=== PATIENT | female | born 1955 | race Caucasian/White ===

== ENCOUNTER 2016-12-03 11:59 | Emergency (ER) | payer OTHER ==
[2016-12-03 11:59] VITALS: BMI 32.7
[2016-12-03 12:10] VITALS: O2SAT 99
--- NOTE | 2016-12-03 13:22 | C.PDOC ---
History Of Present Illness 61 year old female presents to the ED after being sent by Dr. Boyle for a procedure. Patient states she has had intermittent RUQ pain for the past month and was told she had kidney stones. She notes she ate 30 minutes [employer] and denies vomiting, fever, diarrhea, urinary symptoms, or any other complaints at this time. Time Seen by Provider: 12/03/16 12:22 Chief Complaint (Nursing): Female Genitourinary History Per: Patient History/Exam Limitations: no limitations Onset/Duration Of Symptoms: Days Current Symptoms Are (Timing): Still Present Severity: Mild Location Of Pain/Discomfort: RUQ Radiation Of Pain To:: None Associated Symptoms: denies: Fever, Nausea, Vomiting, Urinary Symptoms Abnormal Vaginal Bleeding: No Past Medical History Reviewed: Historical Data, Nursing Documentation, Vital Signs Vital Signs: Last Vital Signs Temp 97.8 F 12/03/16 15:35 Pulse 56 L 12/03/16 15:35 Resp 18 12/03/16 15:35 BP 130/79 12/03/16 15:35 Pulse Ox 99 12/03/16 15:35 - Medical History PMH: Arthritis, HTN Family History: States: Unknown Family Hx - Social History Hx Alcohol Use: No Hx Substance Use: No - Immunization History Hx Tetanus Toxoid Vaccination: No Hx Influenza Vaccination: No Hx Pneumococcal Vaccination: No Review Of Systems Except As Marked, All Systems Reviewed And Found Negative. Constitutional: Negative for: Fever Cardiovascular: Negative for: Chest Pain Respiratory: Negative for: Shortness of Breath Gastrointestinal: Positive for: Abdominal Pain (+RUQ pain). Negative for: Vomiting, Diarrhea Genitourinary: Negative for: Dysuria, Frequency Musculoskeletal: Negative for: Back Pain Physical Exam - Physical Exam Appears: Non-toxic, No Acute Distress Skin: Normal Color, Warm, Dry Head: Atraumatic, Normacephalic Eye(s): bilateral: Normal Inspection Oral Mucosa: Moist Chest: Symmetrical Cardiovascular: Rhythm Regular Respiratory: Normal Breath Sounds, No Accessory Muscle Use Gastrointestinal/Abdominal: Soft, No Tenderness, No Distention, No Guarding, No Rebound Extremity: Normal ROM, No Deformity Neurological/Psych: Oriented x3, Normal Speech, Normal Cognition ED Course And Treatment - Laboratory Results Result Diagrams: 12/03/16 13:34 12/03/16 13:34 O2 Sat by Pulse Oximetry: 99 (Room air) Pulse Ox Interpretation: Normal Medical Decision Making Medical Decision Making: Plan: * Blood work * Urinalysis Progress: Case discussed with Dr. Boyle who requested admission for nephrolithiasis. Disposition - Disposition Disposition: HOSPITALIZED Disposition Time: 13:00 Condition: STABLE - Clinical Impression Clinical Impression: Nephrolithiasis - PA / EXECUTIVE DIRECTOR OF NURSING / Resident Statement MD/DO has reviewed & agrees with the documentation as recorded. - Scribe Statement The provider has reviewed the documentation as recorded by the Scribe Vandana Goel. All medical record entries made by the Scribe were at my direction and personally dictated by me. I have reviewed the chart and agree that the record accurately reflects my personal performance of the history, physical exam, medical decision making, and the department course for this patient. I have also personally directed, reviewed, and agree with the discharge instructions and disposition. Decision To Admit - . Bed Request Type: Same Day Surgery Admitting Physician: Perico Boyle Patient Diagnosis: Nephrolithiasis
[2016-12-03 13:37] LABS: URINE BACTERIA RARE (<OCC); URINE BILIRUBIN NEGATIVE (NEGATIVE); URINE BLOOD NEGATIVE (NEGATIVE); URINE COLOR Straw (YELLOW); URINE GLUCOSE (UA) NORMAL (Normal); URINE KETONE NEGATIVE (NEGATIVE); URINE LEUKOCYTE ESTERASE NEG Leu/uL (Negative); URINE PROTEIN NEGATIVE (NEGATIVE); URINE UROBILINOGEN NORMAL mg/dL (0.2-1.0)
[2016-12-03 13:45] LABS: BASO # 0.1 K/uL (0.0-0.2); BASO % 0.9 % (0.0-2.0); EOS # 0.1 K/uL (0.0-0.7); EOS % 2.1 % (0.0-4.0); HEMATOCRIT 37.4 % (34.0-47.0); LYMPH # 1.9 K/uL (1.0-4.3); LYMPH % 30.9 % (20.0-40.0); MEAN CELL VOLUME 82.6 fL (81.0-99.0); MEAN CORPUSCULAR HGB CONC 33.9 g/dL (33.0-37.0); MEAN PLATELET VOLUME 8.8 fL (7.2-11.7); MONO # 0.4 K/uL (0.0-0.8); MONO % 7.4 % (0.0-10.0); NRBC % 0.1 % (0.0-2.0); RED CELL DISTRIBUTION WIDTH 13.5 % (11.5-14.5)
[2016-12-03 13:47] LABS: CHLORIDE 101 mmol/L (98-107)
[2016-12-03 13:48] LABS: POTASSIUM 3.6 mmol/L (3.6-5.2); SODIUM 141 mmol/L (132-148)
[2016-12-03 13:50] LABS: ALB/GLOB RATIO 1.3 (1.0-2.1); AST/SGOT 37 U/L (14-36); BILIRUBIN,TOTAL 0.2 mg/dL (0.2-1.3); CARBON DIOXIDE 27 mmol/L (22-30); GFR AFRICAN-AMERICAN > 60; TOTAL PROTEIN 7.1 g/dL (6.3-8.3)
[2016-12-03 13:51] LABS: ALKALINE PHOSPHATASE 79 U/L (38-126); ALT/SGPT 38 U/L (9-52); BLOOD UREA NITROGEN 14 mg/dL (7-17); CALCIUM 8.9 mg/dl (8.6-10.4); GLUCOSE,RANDOM 127 mg/dL (65-105)
[2016-12-03 15:37] VITALS: BP 130/79; PULSE 56; RESP 18; TEMP 97.8
--- NOTE | 2016-12-03 17:36 | HP ---
UROLOGY EMERGENCY ADMISSION AND EMERGENCY DISCHARGE HISTORY OF PRESENT ILLNESS: The patient is known to me. She has kidney stone. Comes in today with emergency pain. I had been seeing the patient in the office. We had discussed options. Trying to sc hedule an outpatient, but she is having too much pain for waiting, so she came to the ER. See plans below. We discussed the possibility for a cysto, stent insertion. PAST MEDICAL AND SURGICAL HISTORY: As listed on the chart. Otherwise, unremarkable from a urology [facility]. No history of an VT or CVA. SOCIAL HISTORY: She is here with her and her grandchildren. Yesterday, the was in the office, also, as a patient. See those documented notes. He had re ceived a medication called TriMix. He is actually very happy with it. We had discussed various options with the patient for recommendations. MEDICATIONS: See chart. ALLERGIES: . PHYSICAL EXAMINATION: GENERAL: Well-nourished female. She is currently resting comfortably on the gurney, in no apparent distress. VITAL SIGNS: Within normal limits, included in the chart. LUNGS: Clear. HEART: Normal S1. ABDOMEN: Overall soft, nontender. PELVIC: Deferred for now. DIAGNOSIS: Severe renal colic that now she is resting comfortably and feeling better. We discussed options with the patient. At this point, the patient has had a large meal. I discussed with her specifically not eating anything after 7, but with the highway safety engineer today she is e xplaining that she just forgot. She had pancakes, eggs, milk; all kinds of things. Late in the morning. I discussed with the patient therefore options about waiting for later. Then, she started asking mor e questions about the risks associated with the procedure, particularly in the evening. We tried the n considering the possibility for taking care of her in the morning. The operating room schedule is not yet available. At this point, she is stable. She has her here with her, so I discussed with her options. W e are going to make arrangements for an outpatient, and if it is an emergency will even do it tomorro w. I had discussed previously with the patient the possibility for going out to [place] [facility], but for various reasons we were not able to do that. So, the plan at this point is to discharge the patient home today overnight, after she has taken ibuprofen. I asked her if she wants anything stronger, like Percocet or Tylenol with codeine. She said no. PLAN: Is as follows: Observation. If she has any fevers, I explained to her just to call me. Naus ea, vomiting, etc., she has to call me. She is, meanwhile, to strain the urine and then further plan s will follow. She is going to come to the office and we are going to discuss further. On a separate social note, I also spoke to the who speaks Slovak a little bit better. He wa s very happy with the medication I gave him yesterday and the name was TriMix. Was able to use the medicine and he said that he would rather just not do the procedure at this point until his is much more clear as to what she is getting done. I had explained it several times yesterday, explained it by phone now, and I explained it again with the highway safety engineer here. But, if there are any concerns I certainly do not want to be pushing the procedure. PLAN FOLLOWS: Analgesics, hydration, discharged home, and then follow up. Vimal Boyle MD cc: [id number] TT: 12/03/2016 17:35:47 donta
== END 2016-12-03 16:25 | disposition home or self-care (01) ==
LOC: C.ER 11:59 → C.SDS 14:25 → C.ER 14:25
DX: N20.0 Calculus of kidney (principal)

== ENCOUNTER 2016-12-07 11:50 | Day surgery (SDC) | payer OTHER ==
[2016-12-07 11:51] VITALS: BMI 32.7
--- NOTE | 2016-12-07 12:10 | C.PDOC ---
History Of Present Illness The patient, a 61 y/o female, presents to the ED for evaluation after being referred by Dr. Boyle for an unknown procedure. Patient reports right-sided flank and right upper quadrant pain which began around 2 months ago. Otherwise, she denies fever, chills, nausea, vomiting, and diarrhea. Chief Complaint (Nursing): Abdominal Pain History Per: Patient History/Exam Limitations: no limitations Onset/Duration Of Symptoms: Other (+2 months ) Current Symptoms Are (Timing): Still Present Location Of Pain/Discomfort: RUQ Radiation Of Pain To:: Other (right-sided flank ) Quality Of Discomfort: "Pain" Associated Symptoms: denies: Fever, Chills, Nausea, Vomiting, Diarrhea, Constipation Exacerbating Factors: None Alleviating Factors: None Additional History Per: Patient Abnormal Vaginal Bleeding: No Past Medical History Reviewed: Historical Data, Nursing Documentation, Vital Signs Vital Signs: Last Vital Signs Temp 97.8 F 12/07/16 15:03 Pulse 65 12/07/16 15:03 Resp 20 12/07/16 15:03 BP 124/74 12/07/16 15:03 Pulse Ox 100 12/07/16 15:03 - Medical History PMH: Arthritis, HTN Denies: Chronic Kidney Disease Surgical History: No Surg Hx Family History: States: Unknown Family Hx - Social History Hx Alcohol Use: No Hx Substance Use: No - Immunization History Hx Tetanus Toxoid Vaccination: No Hx Influenza Vaccination: No Hx Pneumococcal Vaccination: No Review Of Systems Except As Marked, All Systems Reviewed And Found Negative. Constitutional: Negative for: Fever, Chills Gastrointestinal: Positive for: Abdominal Pain (right upper quadrant ). Negative for: Nausea, Vomiting, Diarrhea Musculoskeletal: Positive for: Other (+right-sided flank pain ) Physical Exam - Physical Exam Appears: Non-toxic, No Acute Distress Skin: Normal Color, Warm, Dry Head: Atraumatic, Normacephalic Eye(s): bilateral: Normal Inspection Oral Mucosa: Moist Neck: Supple Chest: Symmetrical, No Deformity, No Tenderness Cardiovascular: Rhythm Regular, No Murmur Respiratory: Normal Breath Sounds, No Rales, No Rhonchi, No Wheezing Gastrointestinal/Abdominal: Soft, No Tenderness, No Guarding, No Rebound Back: Normal Inspection, No Vertebral Tenderness, No Paraspinal Tenderness Extremity: Normal ROM, Capillary Refill (less than 2 seconds ) Neurological/Psych: Oriented x3, Normal Speech, Normal Cognition Gait: Steady ED Course And Treatment - Laboratory Results Result Diagrams: 12/07/16 13:20 12/07/16 13:20 O2 Sat by Pulse Oximetry: 99 (on RA) Pulse Ox Interpretation: Normal Medical Decision Making Medical Decision Making: Impression: 61y/o female with right-sided flank and right upper quadrant pain Plan: * labs * reassess and disposition Progress Notes: labs ordered and reviewed. 1350: Received callback from Dr. Boyle, who states patient was referred to the [facility] for Same Day Surgery. Disposition - Disposition Disposition: HOSPITALIZED Disposition Time: 13:50 Condition: STABLE - POA Present On Arrival: None - Clinical Impression Clinical Impression: Nephrolithiasis - PA / LABORATORY MILLER / Resident Statement MD/DO has reviewed & agrees with the documentation as recorded. - Scribe Statement The provider has reviewed the documentation as recorded by the Scribe (Celina Montgomery) All medical record entries made by the Scribe were at my direction and personally dictated by me. I have reviewed the chart and agree that the record accurately reflects my personal performance of the history, physical exam, medical decision making, and the department course for this patient. I have also personally directed, reviewed, and agree with the discharge instructions and disposition. Decision To Admit - Pt Status Changed To: Hospital Disposition Of: SDS- Endo,OR,Cath,IR - . Bed Request Type: Same Day Surgery Admitting Physician: Perico Boyle Patient Diagnosis: Nephrolithiasis
[2016-12-07 13:26] LABS: BASO # 0.1 K/uL (0.0-0.2); BASO % 1.2 % (0.0-2.0); EOS # 0.2 K/uL (0.0-0.7); EOS % 2.6 % (0.0-4.0); HEMATOCRIT 41.2 % (34.0-47.0); LYMPH # 2.1 K/uL (1.0-4.3); LYMPH % 33.9 % (20.0-40.0); MEAN CELL VOLUME 82.4 fL (81.0-99.0); MEAN CORPUSCULAR HEMOGLOBIN 27.7 pg (27.0-31.0); MEAN CORPUSCULAR HGB CONC 33.7 g/dL (33.0-37.0); MONO # 0.4 K/uL (0.0-0.8); MONO % 6.1 % (0.0-10.0); NRBC % 0.1 % (0.0-2.0); RED CELL DISTRIBUTION WIDTH 13.5 % (11.5-14.5); WHITE BLOOD COUNT 6.2 K/uL (4.8-10.8)
[2016-12-07 13:28] LABS: URINE BILIRUBIN NEGATIVE (NEGATIVE); URINE BLOOD NEGATIVE (NEGATIVE); URINE COLOR Yellow (YELLOW); URINE GLUCOSE (UA) NORMAL (Normal); URINE KETONE NEGATIVE (NEGATIVE); URINE LEUKOCYTE ESTERASE NEG Leu/uL (Negative); URINE PROTEIN NEGATIVE (NEGATIVE); URINE UROBILINOGEN NORMAL mg/dL (0.2-1.0); WBC URINE < 1 /hpf (0-5)
[2016-12-07 13:33] LABS: CHLORIDE 100 mmol/L (98-107)
[2016-12-07 13:34] LABS: POTASSIUM 3.8 mmol/L (3.6-5.2); SODIUM 139 mmol/L (132-148)
[2016-12-07 13:36] LABS: BILIRUBIN,TOTAL 0.4 mg/dL (0.2-1.3); GFR AFRICAN-AMERICAN > 60
[2016-12-07 13:37] LABS: ALB/GLOB RATIO 1.3 (1.0-2.1); ALKALINE PHOSPHATASE 75 U/L (38-126); ALT/SGPT 39 U/L (9-52); AST/SGOT 30 U/L (14-36); BLOOD UREA NITROGEN 17 mg/dL (7-17); CALCIUM 9.3 mg/dl (8.6-10.4); CARBON DIOXIDE 28 mmol/L (22-30); GLUCOSE,RANDOM 91 mg/dL (65-105); TOTAL PROTEIN 7.8 g/dL (6.3-8.3)
[2016-12-07] MEDS ORDERED: Iohexol 240 (50 ml) ONE (15:46)
[2016-12-07] MEDS ORDERED: cefTRIAXone IV 1 gm in Dextros 50 ML IVPB ONE (15:46)
[2016-12-07] MEDS ORDERED: Lactated Ringer's 1,000 ML IV ONE (15:55)
[2016-12-07] MEDS ORDERED: Midazolam 2 MG/2 ML VIAL ONE (15:56)
[2016-12-07] MEDS ORDERED: Propofol 10 mg/ml Inj (20 ML) ONE ×2 (15:56→16:13)
[2016-12-07] MEDS ORDERED: ePHEDrine 50 mg/ml Inj ONE (16:06)
[2016-12-07] MEDS ORDERED: HYDROmorphone 0.5 mg/0.5 ml ISec IVP PRN (16:32)
[2016-12-07] MEDS ORDERED: Lactated Ringer's 500 ML IV ONE (17:07)
--- NOTE | 2016-12-07 17:10 | HP ---
REASON FOR ADMISSION: Severe renal colic. HISTORY OF PRESENT ILLNESS: A very pleasant lady. An unusual story. I have been trying to schedule an outpatient ESWL; that is why she is coming. Trying to do the sched uling for different various reasons, the patient has presented here to the ER. She is here today. S he says it hurts on her right side, not as much as the other day, but the other day (you can see the previously dictated notes) she ended up eating. We had discussed options and then she had concerns. She then came to the office Wednesday. We discussed options including the possibility for just an ESWL for this morning, but for various reasons she was not able to make that. Then, today she came to the Emergency Room. We are admitting her as an emergency. I am going to put a stent in. We know she has a stone in the kidney. It is possible she is passing some fragments that are hurting . We are going to put a stent in (see the plan listed below) and then subsequently plan for an ESWL. PAST MEDICAL AND SURGICAL HISTORY: No history of an AR or CVA. SOCIAL HISTORY: Essentially unremarkable. She lives with her who is also my patient. REVIEW OF SYSTEMS: Noncontributory. No weight loss, chest pain. PHYSICAL EXAMINATION: GENERAL: Well-nourished female, in no apparent distress. VITAL SIGNS: Within normal limits, included in the chart. LUNGS: Clear. ABDOMEN: Overall soft, nontender. PELVIC: Deferred till cystoscopy, but I will mention now she has a normal meatus but she has a moder ate grade cystocele. It is fairly prominent. No rectal masses detected. LABORATORIES: See chart. DIAGNOSES: Urolithiasis, hematuria, hydronephrosis. We discussed options, risks, benefits and alternatives. This is an emergency admission. We are going to plan to put a stent in. I am eventually planning for an ESWL, but today I just want to put a stent in. This is now her second visit to the Emergency Room. For various reasons for sche duling, again in the office and in here, including last week, I had Yi translation last week; we did even with the receiving operator. But after discussing that, then she was feeling better plus she was not feeling as severe pain, she h as many concerns about the procedure, but we discussed with her in great length. But for today this is an emergency admission. We are going to plan for stent insertion (see the operative report) and t yi further plans will follow. ADDENDUM #1: The plan is for antibiotic prophylaxis, cystoscopy, stent insertion and further plans [facility]. ADDENDUM #2: We inserted a stent without difficulty. She does have a stone that is a little bit les s than a centimeter, but maybe she is passing little fragments that are causing this intermittent col ic. So today we put a stent in, and then we will plan for an ESWL. Vimal Boyle MD cc: [id number] TT: 12/07/2016 17:10:00 mn
--- NOTE | 2016-12-07 17:19 | OP ---
PROCEDURE DATE: 12/07/2016 PREOPERATIVE DIAGNOSES: Urolithiasis, hematuria, severe renal colic. POSTOPERATIVE DIAGNOSES: Urolithiasis, hematuria, severe renal colic. PROCEDURES: Examination under anesthesia, cystoscopy, right retrograde pyelogram, insertion of right double-J stent. SURGEON: Vimal Boyle MD COMPLICATIONS: None. FINDINGS: There is a moderate cystocele. There is a stone in the right kidney. There does not seem to be any hydronephrosis today. At the end of the procedure, we have a double-J stent employed in g ood position. There were no complications. See history and physical for further details. BLOOD LOSS: Less than 10 mL. DESCRIPTION OF PROCEDURE: After discussing options with the patient, it has been difficult because w e have discussed options at length with the patient and the with the translation. They have had 2 separate trips to the ER. Perhaps she is passing a stone. I know she has a stone up in her ki dney. Perhaps she is passing some debris and fragments. After discussing options, we were thinking of outpatient ESWL but she has presented now a second time , so I will bring her to the operating room for an emergency cysto and stent insertion. Unless there is some finding in the ureter, I am planning to insert a stent and then maybe this will help her kallie al colic. Then we will make further plans for an outpatient ESWL at her convenience. After obtaining informed consent, the patient placed on the table and routine monitors placed. Timeo uts were called to confirm the patient and positioning. The patient was given antibiotic prophylaxis . Cystoscope via the urethra. I just want to mention she has a moderate cystocele. Ureteral orifice i dentified and retrograde pyelogram is performed. A wire is passed up to the kidney. There is really no hydro. The ureters within normal limits. Retrograde pyelogram was performed. Double J was inserted without difficulty. Bladder then cystoscoped. The patient tolerated the proce dure without complication. Exam under anesthesia revealed normal external genitalia. She has a uter ine prolapse. There is no rectal masses. The patient tolerated without complication. Will discuss further plans. Vimal Boyle MD cc: [id number] TT: 12/07/2016 17:18:58 mn
[2016-12-07 17:35] VITALS: BP 122/59; O2SAT 100
[2016-12-07 18:05] VITALS: PULSE 66; RESP 18; TEMP 98
--- NOTE | 2016-12-08 10:03 | RAD ---
HISTORY: KIDNEY STONE COMPARISON: Lumbar spine 09/20/2015 FINDINGS: BOWEL: Right stool retention. No gross bowel obstruction BONES: Increased sclerosis at L5- S1. Prior lumbar spine studies suggested bilateral L5 spondylolysis with spondylolisthesis here OTHER FINDINGS: 2 mm right hemipelvic calcification probably a phlebolith unchanged frontal lumbar spine study. A left hemipelvic sliver like 1 x 5 mm epi pelvic calcification is also unchanged. Vascular calcification here also favored. The 5 mm midpole right renal calculus corresponds with a filling defect within the right caliceal system. The right pelvocaliceal system is opacified. On this exam, it appears bifid . Filling defect appear within 1 of the calices from the bifid inferior caliceal system which projects more superiorly at the midpole level The right ureteral stent proximal coil is in the upper pole calyx and the distal coil projects over the bladder. IMPRESSION: Right ureteral stent placement as above with midpole right calculus in caliceal system. No marked dilatation Other findings as above
== END 2016-12-07 18:05 | disposition home or self-care (01) ==
LOC: C.ER 11:50 → C.SDS 13:54
PROVIDERS: ATTEND Urology
DX: N20.0 Calculus of kidney (principal); R31.9 Hematuria, unspecified; N81.10 Cystocele, unspecified
CPT/HCPCS: 52005; 52332; 74022; 80053; 81001; 85025; 85610; 85730; 99285; C1769; C2617; J0696; J7120

== ENCOUNTER 2016-12-21 13:21 | Day surgery (SDC) | payer OTHER ==
[2016-12-21 13:21] VITALS: BMI 32.7
[2016-12-21 14:29] LABS: BASO # 0.1 K/uL (0.0-0.2); BASO % 0.9 % (0.0-2.0); EOS # 0.2 K/uL (0.0-0.7); EOS % 2.4 % (0.0-4.0); HEMATOCRIT 42.8 % (34.0-47.0); LYMPH # 2.1 K/uL (1.0-4.3); MEAN CELL VOLUME 82.1 fL (81.0-99.0); MEAN CORPUSCULAR HEMOGLOBIN 27.5 pg (27.0-31.0); MEAN CORPUSCULAR HGB CONC 33.5 g/dL (33.0-37.0); MEAN PLATELET VOLUME 8.4 fL (7.2-11.7); MONO # 0.4 K/uL (0.0-0.8); MONO % 5.7 % (0.0-10.0); NRBC % 0.1 % (0.0-2.0); RED CELL DISTRIBUTION WIDTH 13.1 % (11.5-14.5); WHITE BLOOD COUNT 7.1 K/uL (4.8-10.8)
--- NOTE | 2016-12-21 14:35 | C.PDOC ---
History Of Present Illness 61 y/o female presents to the ED for same day surgery to remove right uretal stent placed by Vimal Ayoub 2 weeks ago for stone. Pt states she has had hematuria ever since. Pt denies fever, chills, back pain or any other complaints. Time Seen by Provider: 12/21/16 13:57 Chief Complaint (Nursing): Abdominal Pain History Per: Patient History/Exam Limitations: no limitations Onset/Duration Of Symptoms: Days Current Symptoms Are (Timing): Still Present Severity: Moderate Radiation Of Pain To:: None Quality Of Discomfort: denies: "Pain" Associated Symptoms: denies: Fever, Chills, Back Pain Alleviating Factors: None Recent travel outside of the [place]: No Past Medical History Reviewed: Historical Data, Nursing Documentation, Vital Signs Vital Signs: Last Vital Signs Temp 97.9 F 12/21/16 18:25 Pulse 64 12/21/16 18:25 Resp 18 12/21/16 18:25 BP 137/62 12/21/16 18:25 Pulse Ox 99 12/21/16 18:25 - Medical History PMH: Arthritis, HTN Family History: States: Unknown Family Hx - Social History Hx Alcohol Use: No Hx Substance Use: No - Immunization History Hx Tetanus Toxoid Vaccination: No Hx Influenza Vaccination: No Hx Pneumococcal Vaccination: No Review Of Systems Except As Marked, All Systems Reviewed And Found Negative. Constitutional: Negative for: Fever, Chills Genitourinary: Positive for: Hematuria. Negative for: Dysuria Musculoskeletal: Negative for: Back Pain Physical Exam - Physical Exam Appears: Non-toxic, No Acute Distress Skin: Warm, Dry, No Rash Head: Atraumatic, Normacephalic Chest: Symmetrical, No Tenderness Cardiovascular: Rhythm Regular, No Murmur Respiratory: Normal Breath Sounds, No Rales, No Rhonchi, No Wheezing Gastrointestinal/Abdominal: Normal Exam, Soft, No Tenderness Extremity: Normal ROM Extremity: Bilateral: Atraumatic Neurological/Psych: Oriented x3, Normal Speech ED Course And Treatment - Laboratory Results Result Diagrams: 12/21/16 14:21 12/21/16 14:21 O2 Sat by Pulse Oximetry: 100 (room air) Pulse Ox Interpretation: Normal Medical Decision Making Medical Decision Making: Plan: EKG, labs, CXR, UA persistent hematuria ? related to indwelling R ureteral stent. Same Day Surg with Dr. Erma Lovell. Disposition Doctor Will See Patient In The: Hospital Counseled Patient/Family Regarding: Studies Performed, Diagnosis - Disposition Disposition: HOSPITALIZED Disposition Time: 14:00 Condition: GOOD - Clinical Impression Clinical Impression: Hematuria - Scribe Statement The provider has reviewed the documentation as recorded by the Tessy Hernandez Provider Attestation: All medical record entries made by the Tessy were at my direction and personally dictated by me. I have reviewed the chart and agree that the record accurately reflects my personal performance of the history, physical exam, medical decision making, and the department course for this patient. I have also personally directed, reviewed, and agree with the discharge instructions and disposition.
[2016-12-21 14:39] LABS: CHLORIDE 99 mmol/L (98-107)
[2016-12-21 14:40] LABS: SODIUM 138 mmol/L (132-148)
[2016-12-21 14:42] LABS: ALB/GLOB RATIO 1.5 (1.0-2.1); ALKALINE PHOSPHATASE 82 U/L (38-126); ALT/SGPT 38 U/L (9-52); AST/SGOT 31 U/L (14-36); BILIRUBIN,TOTAL 0.4 mg/dL (0.2-1.3); BLOOD UREA NITROGEN 18 mg/dL (7-17); CARBON DIOXIDE 28 mmol/L (22-30); GFR AFRICAN-AMERICAN > 60; GLUCOSE,RANDOM 93 mg/dL (65-105); TOTAL PROTEIN 8.9 g/dL (6.3-8.3)
[2016-12-21 14:43] LABS: CALCIUM 9.5 mg/dl (8.6-10.4)
[2016-12-21] MEDS ORDERED: Midazolam 2 MG/2 ML VIAL ONE ×2 (15:42)
[2016-12-21] MEDS ORDERED: Lidocaine Hydrochloride 5 ML INJ ONE (15:43)
[2016-12-21] MEDS ORDERED: cefTRIAXone IV 1 gm in Dextros 50 ML IVPB ONE (15:45)
[2016-12-21] MEDS ORDERED: Propofol 10 mg/ml Inj (20 ML) ONE (15:49)
[2016-12-21] MEDS ORDERED: Lidocaine 2% Jelly (Uro-Jet) ONE (15:59)
[2016-12-21] MEDS ORDERED: Oxycodone/Acetaminophen 5/325 mg Tab PO PRN (16:40)
--- NOTE | 2016-12-21 17:11 | RAD ---
HISTORY: pre op COMPARISON: None available TECHNIQUE: Chest, one view. FINDINGS: Examination limited by habitus and hypoinflation. LUNGS: Bibasilar atelectasis. Please note that chest x-ray has limited sensitivity for the detection of pulmonary masses. PLEURA: No significant pleural effusion identified. No definite pneumothorax . CARDIOVASCULAR: Heart size appears top normal. OSSEOUS STRUCTURES: Degenerative changes of the spine. VISUALIZED UPPER ABDOMEN: Elevation of the right hemidiaphragm. OTHER FINDINGS: None. IMPRESSION: Mild bibasilar atelectasis. Hypoinflation. Elevation of the right hemidiaphragm.
[2016-12-21 19:25] VITALS: RESP 18
[2016-12-21 19:26] VITALS: BP 137/62; PULSE 64; TEMP 97.9
[2016-12-22 00:30] VITALS: O2SAT 100
--- NOTE | 2016-12-22 10:19 | CARD ---
APPROVED REPORT EKG Measurement Heart [id number] <Conclusion> Sinus bradycardia Otherwise normal ECG
--- NOTE | 2016-12-22 12:50 | RAD ---
HISTORY: RIGHT STENT REMOVAL COMPARISON: December 07 2016 FINDINGS: BOWEL: Normal. No obstruction. First image shows Right double-J ureteral stent in place, distal right hemipelvic phleboliths. Image number 2 shows no ureteral stent consistent with a history of right stent removal BONES: Bilateral L5-S1 and L4-5 facet arthrosis OTHER FINDINGS: None. IMPRESSION: Right ureteral stent removal as above. No ureteral calculi appreciated
--- NOTE | 2017-01-28 20:17 | OP ---
PROCEDURE DATE: 12/21/2016 PREOPERATIVE DIAGNOSES: Urolithiasis, hematuria, hydronephrosis, flank pain. POSTOPERATIVE DIAGNOSES: Urolithiasis, hematuria, hydronephrosis, flank pain. PROCEDURE: Cystoscopy, removal of double-J stent on the right side. COMPLICATIONS: There were no complications. FINDINGS: The bladder mucosa was relatively normal, somewhat erythematous on the stent. No other abnormal findings. Stent removed without difficulty. Double-J stent removed intact. INDICATIONS: See history and physical for details. A very pleasant lady here for the above procedu re. PROCEDURE: After obtaining informed consent, the patient placed on the table, routine monitors place d, timeouts were called. ____ patient and positioning. We removed the stent without difficulty and emptied the bladder ____. The patient tolerated ____ without complication. Vimal Boyle MD cc: [id number] TT: 01/28/2017 20:17:10 osmin
== END 2016-12-21 19:00 | disposition home or self-care (01) ==
LOC: C.ER 13:21 → C.SDS 14:49
PROVIDERS: ATTEND Urology
DX: R31.9 Hematuria, unspecified (principal); I10 Essential (primary) hypertension
CPT/HCPCS: 52310; 71010; 74022; 80053; 85025; 85610; 85730; 93005; 99285; J0696; J1885; J2704

== ENCOUNTER 2017-08-01 00:21 | Emergency (ER) | payer MEDICAID, OTHER ==
[2017-08-01 00:21] VITALS: BMI 32.7
--- NOTE | 2017-08-01 01:16 | C.PDOC ---
History Of Present Illness 62 year old female with Hx of HTN, DM presents to the ED accompanied by her for evaluation of a headache and CP that started earlier today. Patient reports she started feeling an intense headache today and decided to call EMS to be brought to the ED. 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 Patient denies nausea, fever, chills, blurry vision , numbness, back pain. Time Seen by Provider: 08/01/17 00:26 Chief Complaint (Nursing): Headache History Per: Patient History/Exam Limitations: no limitations Onset/Duration Of Symptoms: Hrs Current Symptoms Are (Timing): Still Present Severity: None Quality: "Pain" Preceeding Symptoms: None Associated Symptoms: Extremity Weakness Recent travel outside of the [place]: No Additional History Per: Patient Past Medical History Reviewed: Historical Data, Nursing Documentation, Vital Signs Vital Signs: Last Vital Signs Temp Pulse 64 08/01/17 00:32 Resp 20 08/01/17 00:32 BP 120/68 08/01/17 00:32 Pulse Ox 97 08/01/17 01:24 - Medical History PMH: Arthritis, HTN Denies: Chronic Kidney Disease Surgical History: No Surg Hx Family History: States: Unknown Family Hx - Social History Hx Alcohol Use: No Hx Substance Use: No - Immunization History Hx Tetanus Toxoid Vaccination: No Hx Influenza Vaccination: No Hx Pneumococcal Vaccination: No Review Of Systems Constitutional: Negative for: Fever, Chills Cardiovascular: Positive for: Chest Pain. Negative for: Palpitations Respiratory: Negative for: Cough, Shortness of Breath Gastrointestinal: Negative for: Nausea, Vomiting, Abdominal Pain Genitourinary: Negative for: Dysuria Musculoskeletal: Negative for: Neck Pain, Back Pain Skin: Negative for: Rash Neurological: Positive for: Headache. Negative for: Weakness, Numbness Physical Exam - Physical Exam Appears: Non-toxic, No Acute Distress Skin: Normal Color, Warm, Dry Head: Atraumatic, Normacephalic Eye(s): bilateral: Normal Inspection, PERRL, EOMI Nose: No Discharge, No Deformity Oral Mucosa: Moist Neck: Normal ROM, Supple Chest: Symmetrical Cardiovascular: Rhythm Regular, No Murmur Respiratory: Normal Breath Sounds, No Rales, No Rhonchi, No Wheezing Gastrointestinal/Abdominal: Soft, No Tenderness, No Distention, No Rebound Extremity: Normal ROM, No Calf Tenderness, No Deformity, No Swelling Neurological/Psych: Oriented x3, Normal Speech, Normal Cognition Gait: Steady ED Course And Treatment O2 Sat by Pulse Oximetry: 97 (On RA) Pulse Ox Interpretation: Normal Medical Decision Making Medical Decision Making: Impression : CP and headache Plan: * EKG * Tylenol 650 mg PO Patient has a stable gait walking the ED batista independently and all symptoms have improved Disposition Doctor Will See Patient In The: Office - Disposition Disposition: HOME/ ROUTINE Disposition Time: 01:30 Condition: IMPROVED Forms: [employer] (Frisian) - Clinical Impression Clinical Impression: Headache, Anxiety - Scribe Statement The provider has reviewed the documentation as recorded by the Scribe Patrice Benavidez All medical record entries made by the Scribe were at my direction and personally dictated by me. I have reviewed the chart and agree that the record accurately reflects my personal performance of the history, physical exam, medical decision making, and the department course for this patient. I have also personally directed, reviewed, and agree with the discharge instructions and disposition.
[2017-08-01 01:45] VITALS: BP 118/73; PULSE 60; RESP 18; TEMP 97.9; O2SAT 100
--- NOTE | 2017-08-02 22:18 | CARD ---
APPROVED REPORT EKG Measurement Heart [id number] <Conclusion> Normal sinus rhythm Normal ECG
== END 2017-08-01 01:45 | disposition home or self-care (01) ==
LOC: C.ER 00:21
DX: R51 Headache (principal); F41.9 Anxiety disorder, unspecified

== ENCOUNTER 2017-09-08 07:08 | Day surgery (SDC) | payer OTHER ==
[2017-09-08 07:26] VITALS: BMI 31.2
[2017-09-08] MEDS ORDERED: Propofol 10 mg/ml Inj (20 ML) ONE (08:15)
[2017-09-08] MEDS ORDERED: Lactated Ringer's 1,000 ML IV ONE (08:25)
[2017-09-08] MEDS ORDERED: Pantoprazole 40 mg EC Tab PO STA (08:41)
--- NOTE | 2017-09-08 08:41 | CP.SDSHP ---
Same Day Surgery H & P - History Proposed Procedure: EGD Pre-Op Diagnosis: dysphagia. heartburn - Previous Medical/Surgical History Cardiac: Hypertension Endocrine/Metabolic: Diabetes Misc: Other (gastritis) Previous Surgical History: Vein stripping LEs. Knee surgery - Allergies Allergies: Allergies No Known Allergies Allergy (Verified 12/21/16 13:47) - Physical Exam Vital Signs: Vital Signs 09/08/17 07:31 Temperature 97.8 F Pulse Rate 54 L Respiratory 16 Rate Blood Pressure 116/61 O2 Sat by Pulse 98 Oximetry Mental Status: Alert & Oriented x3 Neuro: WNL Heart: WNL Lungs: WNL GI: WNL - Impression Impression: dysphagia. heartburn Pt. Evaluated Today:Candidate for Anesthesia & Procedure: Yes - Date & Time Date: 09/08/17 Time: 08:40 Short Stay Discharge - Short Stay Discharge Admitting Diagnosis/Reason for Visit: EPIGASTRIC PAIN / DYSPHAGIA Disposition: HOME/ ROUTINE
[2017-09-08 09:18] VITALS: TEMP 98
[2017-09-08 09:52] VITALS: BP 118/58
[2017-09-08 10:17] VITALS: PULSE 58; RESP 18; O2SAT 98
== END 2017-09-08 10:11 | disposition home or self-care (01) ==
LOC: C.ENDO 07:08
PROVIDERS: ATTEND Internal Medicine Gastroenterology
DX: K22.70 Barrett's esophagus without dysplasia (principal); K21.9 Gastro-esophageal reflux disease without esophagitis; K29.70 Gastritis, unspecified, without bleeding; B96.81 Helicobacter pylori [H. pylori] as the cause of diseases classified elsewhere; R10.13 Epigastric pain; R10.816 Epigastric abdominal tenderness; R13.10 Dysphagia, unspecified; E11.9 Type 2 diabetes mellitus without complications; I10 Essential (primary) hypertension; K44.9 Diaphragmatic hernia without obstruction or gangrene
CPT/HCPCS: 43239; 88305; 88312; 88313; 88342; J2704; J7120

== ENCOUNTER 2018-02-02 14:43 | Emergency (ER) | payer OTHER ==
[2018-02-02 14:44] VITALS: BMI 31.2
[2018-02-02 15:07] VITALS: BP 143/72; TEMP 98.6
--- NOTE | 2018-02-02 16:30 | RAD ---
PROCEDURE: Radiographs of the Left Shoulder HISTORY: Rule out fracture COMPARISON: No prior. FINDINGS: BONES: Normal. No fracture. JOINTS: Mild degenerative osteoarthritis. SOFT TISSUES: Normal. OTHER FINDINGS: None. IMPRESSION: No evidence acute displaced fracture nor dislocation. Mild degenerative osteoarthritis.
[2018-02-02 16:44] VITALS: PULSE 62; RESP 18; O2SAT 97
--- NOTE | 2018-02-02 18:34 | C.PDOC ---
History Of Present Illness 62 y/o female presents to the ER complaining of left shoulder pain s/p trip and fall yesterday. Patient denies hitting her head, LOC, dizziness, blurry vision, double vision, CP, SOB, and abdominal pain. Chief Complaint (Nursing): Back Pain History Per: Patient History/Exam Limitations: no limitations Onset/Duration Of Symptoms: Days Current Symptoms Are (Timing): Still Present Severity: Moderate Past Medical History Reviewed: Historical Data, Nursing Documentation, Vital Signs Vital Signs: Last Vital Signs Temp 98.6 F 02/02/18 15:04 Pulse 62 02/02/18 16:43 Resp 18 02/02/18 16:43 BP 143/72 02/02/18 15:04 Pulse Ox 97 02/02/18 18:39 - Medical History PMH: Arthritis, HTN Denies: Chronic Kidney Disease Other Surgeries: Hx of surgeries Family History: States: No Known Family Hx - Social History Hx Alcohol Use: No Hx Substance Use: No - Immunization History Hx Tetanus Toxoid Vaccination: No Hx Influenza Vaccination: No Hx Pneumococcal Vaccination: No Review Of Systems Except As Marked, All Systems Reviewed And Found Negative. Eyes: Negative for: Vision Change Cardiovascular: Negative for: Chest Pain Respiratory: Negative for: Shortness of Breath Gastrointestinal: Negative for: Abdominal Pain Musculoskeletal: Positive for: Shoulder Pain (left shoulder pain) Neurological: Negative for: Dizziness Physical Exam - Physical Exam Appears: Non-toxic, No Acute Distress Skin: Normal Color, Warm, Dry Head: Atraumatic, Normacephalic Eye(s): bilateral: Normal Inspection Nose: Normal Oral Mucosa: Moist Neck: Supple Chest: Symmetrical Cardiovascular: Rhythm Regular Respiratory: Normal Breath Sounds, No Rales, No Rhonchi, No Wheezing Extremity: Normal ROM, Tenderness (diffuse tenderness to left shoulder), No Swelling Neurological/Psych: Oriented x3, Normal Speech ED Course And Treatment O2 Sat by Pulse Oximetry: 97 (RA) Pulse Ox Interpretation: Normal - Other Rad X- Ray- Left Shoulder X-Ray: Viewed By Me, Read By Radiologist Interpretation: PROCEDURE: Radiographs of the Left Shoulder. HISTORY: Rule out fracture. COMPARISON: No prior. FINDINGS: BONES: Normal. No fracture. JOINTS: Mild degenerative osteoarthritis. SOFT TISSUES: Normal. OTHER FINDINGS: None. IMPRESSION: No evidence acute displaced fracture nor dislocation. Mild degenerative osteoarthritis. Medical Decision Making Medical Decision Making: Plan: -- X- Ray - Left Shoulder Updates: X- Ray - Left Shoulder does not show any fractures. Patient has been discharged and instructed to follow up with PMD in 2-3 days. Disposition - Disposition Referrals: Jimmy Gomez Paulette, [Non-Staff] - Disposition: HOME/ ROUTINE Disposition Time: 16:30 Condition: GOOD Additional Instructions: AXEL FRANCOIS, thank you for letting us take care of you today. Your provider was Archie Umana DO. The emergency medical care you received today was directed at your acute symptoms. If you were prescribed any medication, please fill it and take as directed. It may take several days for your symptoms to resolve. Return to the Emergency Department if your symptoms worsen, do not improve, or if you have any other problems. Please contact your doctor or call one of the physicians/clinics you have been referred to that are listed on the Patient Visit Information form that is included in your discharge packet. Bring any paperwork you were given at discharge with you along with any medications you are taking to your follow up visit. Our treatment cannot replace ongoing medical care by a primary care provider outside of the emergency department. [facility] your care today. Follow up with your primary care doctor in 2-3 days for re-evaluation and further management. AXEL FRANCOIS, cain por dejarnos atenderlo hoy. Nino proveedor fue Archie Umana DO. La atencin mdica de emergencia que recibi hoy estaba dirigida a scarlet sntomas agudos. Si le prescribieron algn medicamento, llnelo y tome seg n las indicaciones. Scarlet sntomas pueden tardar varios matthews en resolverse. Regrese al Departamento de Emergencia si scarlet sntomas empeoran, no mejoran o si tiene algn otro problema. Comunquese con nino mdico o llame a suhail de los mdicos / clnicas a los que harrington sido referido que figura en el formulario de Informacin de visita del paciente que se incluye en nino paquete de dalila. Traiga todos los documentos que recibi al momento del dalila junto con los medicamentos que est tomando en nino visita de seguimiento. Nuestro tratamiento no puede reemplazar la atencin mdica en curso por un proveedor de atencin primaria fuera del departamento de emergencia. Cain por permitir que el equipo de [facility] to [facility] sea parte de nino cuidado hoy. Ricco un seguimiento con nino mdico de atencin primaria en 2-3 matthews para ap nueva evaluacin y administracin adicional. Prescriptions: Ibuprofen [Motrin] 600 mg PO Q6 PRN #20 tab PRN Reason: Pain, Moderate (4-7) Instructions: Shoulder Sprain (DC) Forms: Gen Discharge Inst Honduran Print Language: BELIZEAN - Clinical Impression Clinical Impression: Shoulder sprain - Scribe Statement The provider has reviewed the documentation as recorded by the Scribe Nadine Crouch Provider Attestation: All medical record entries made by the Scribe were at my direction and personally dictated by me. I have reviewed the chart and agree that the record accurately reflects my personal performance of the history, physical exam, medical decision making, and the department course for this patient. I have also personally directed, reviewed, and agree with the discharge instructions and disposition.
== END 2018-02-02 16:45 | disposition home or self-care (01) ==
LOC: C.ER 14:43
DX: S43.402A Unspecified sprain of left shoulder joint, initial encounter (principal); W01.0XXA Fall on same level from slipping, tripping and stumbling without subsequent striking against object, initial encounter

== ENCOUNTER 2018-05-19 10:01 | Emergency (ER) | payer OTHER ==
[2018-05-19 10:13] VITALS: BMI 30.3
[2018-05-19 10:16] VITALS: BP 165/78; PULSE 52; RESP 17; TEMP 98.6; O2SAT 96
[2018-05-19 10:58] LABS: SQUAMOUS EPITHIAL < 1 /hpf (0-5); URINE BILIRUBIN NEGATIVE (NEGATIVE); URINE BLOOD NEGATIVE (NEGATIVE); URINE CLARITY Clear (Clear); URINE COLOR Yellow (YELLOW); URINE GLUCOSE (UA) NORMAL (Normal); URINE LEUKOCYTE ESTERASE NEG Leu/uL (Negative); URINE PROTEIN NEGATIVE (NEGATIVE); URINE UROBILINOGEN NORMAL mg/dL (0.2-1.0)
--- NOTE | 2018-05-19 11:02 | C.PDOC ---
History Of Present Illness 62 year old female with a history of chronic back pain presents to the ED for evaluation of worsening defused lower back pain for the last few days. Reports the pain is localized, intermittent, and radiating bilaterally to the lower extremities. Pt admits, previous similar symptoms, c/w chronic lower back pain. Denies new weakness to B/L lower extremities, sensory or vascular deficits, denies fever, chills, abd. pain, N/V, UTi sx, saddle anesthesia,m incontinence. AMbulate to Ed for evaluation, not in any apparent distress. Time Seen by Provider: 05/19/18 10:29 Chief Complaint (Nursing): Back Pain History Per: Patient History/Exam Limitations: no limitations Onset/Duration Of Symptoms: Days, Intermittent Episodes Current Symptoms Are (Timing): Still Present Past Medical History Reviewed: Historical Data, Nursing Documentation, Vital Signs Vital Signs: Last Vital Signs Temp 98.6 F 05/19/18 10:11 Pulse 52 L 05/19/18 10:11 Resp 17 05/19/18 10:11 BP 165/78 H 05/19/18 10:11 Pulse Ox 96 05/19/18 10:11 - Medical History PMH: Arthritis, HTN Denies: Chronic Kidney Disease Family History: States: Unknown Family Hx - Social History Hx Alcohol Use: No Hx Substance Use: No - Immunization History Hx Tetanus Toxoid Vaccination: No Hx Influenza Vaccination: No Hx Pneumococcal Vaccination: No Review Of Systems Except As Marked, All Systems Reviewed And Found Negative. Constitutional: Negative for: Fever, Chills Gastrointestinal: Negative for: Nausea, Vomiting Musculoskeletal: Positive for: Back Pain (lower back pain that radiates to the lower extremities. ) Neurological: Negative for: Weakness, Numbness, Incoordination Physical Exam - Physical Exam Appears: Well, Non-toxic, No Acute Distress Skin: Normal Color, Warm, No Rash, No Ecchymosis Head: Normacephalic Eye(s): bilateral: PERRL Oral Mucosa: Moist Throat: No Erythema, No Drooling Neck: Trachea Midline, No Midline Cervical Tenderness, No Paracervical Tenderness, Supple Chest: Symmetrical, No Deformity, No Tenderness Cardiovascular: Rhythm Regular, No Murmur, No JVD Respiratory: No Decreased Breath Sounds, No Accessory Muscle Use, No Stridor, No Wheezing Gastrointestinal/Abdominal: Soft, No Tenderness, No Distention, No Guarding, No Rebound Back: No CVA Tenderness, No Vertebral Tenderness, Paraspinal Tenderness (defused lumbar ) Extremity: Normal ROM (x4), No Pedal Edema, Capillary Refill (less than 2 seconds.) Neurological/Psych: Oriented x3, Normal Speech, Normal Motor, Normal Sensation, Normal Reflexes Gait: Steady ED Course And Treatment O2 Sat by Pulse Oximetry: 96 (RA) Pulse Ox Interpretation: Normal - Other Rad L-spine X-Ray: Interpreted by Me, Viewed By Me Interpretation: (+ spondylosis, (-) acut efx or sublux Progress Note: LS Spine X-ray. Given Gabapentin, Prednisone, and Ultram. On re- eval, pt is afebrile, hemodynamicaly stable. non-toxic. Ambulatoyr in ED with stable gait. neck: Supple. ENT: no acute findings. Abd: benign, (-) guarding, (-) rebound. back: (-) CVA tenderness. neuorlogicaly intact. UA- normal study. L-spine- no new acute changes. Pt has clinical findings c/w chr. lower back pain w/acute exacerbation. pt advised. ref. to f/u with PMD in 2-3 days for re-eval. return to ED if any worsening or new changes. Disposition Counseled Patient/Family Regarding: Studies Performed, Diagnosis, Need For Followup, Rx Given - Disposition Referrals: [facility] [Outside] Disposition: HOME/ ROUTINE Disposition Time: 12:00 Condition: STABLE Additional Instructions: Light duty, avoid any physical activity for 1 week take pain medication as prescribed Follow up with PMD in 2-3 days for re-evaluation. return to ED if any worsening or new changes. Prescriptions: Gabapentin [Neurontin] 300 mg PO HS #14 cap Methocarbamol [Robaxin] 500 mg PO TID #14 tab Prednisone [Deltasone] 40 mg PO DAILY #6 tablet Instructions: Low Back Pain in Adults Forms: [facility] (Comoran) Print Language: WOLOF - Clinical Impression Clinical Impression: Low back pain, Spondylosis - PA / HEAD OF DRAMA / Resident Statement MD/DO has reviewed & agrees with the documentation as recorded. - Scribe Statement The provider has reviewed the documentation as recorded by the Scribe (Kelly Kimble) All medical record entries made by the Scribe were at my direction and personally dictated by me. I have reviewed the chart and agree that the record accurately reflects my personal performance of the history, physical exam, medical decision making, and the department course for this patient. I have also personally directed, reviewed, and agree with the discharge instructions and disposition.
--- NOTE | 2018-05-19 13:35 | RAD ---
Date of service: 05/19/2018 PROCEDURE: Radiographs of the Lumbar Spine. HISTORY: pain COMPARISON: 07/20/2016 FINDINGS: BONES: Transitional elements are inferred T12 will be considered with rudimentary ribs. The lowest disc containing space which is narrowed is therefore considered L5-S1 where there is grade 1 spondylolisthesis and bilateral spondylolysis noted this has been previously mentioned and all appear similar No interval fracture noted. L4-5 facet hypertrophic changes noted. DISC SPACES: L5-S1 disc space narrowing-similar OTHER FINDINGS: Moderate stool retention Atherosclerotic vascular calcifications present. In the right upper quadrant are indeterminate hyperdensities have been previously mentioned-the possibility that these are right renal calculi is reached stated. IMPRESSION: Transitional elements as noted above. Please note the above numbering utilized in this report No change in the grade 1 spondylolisthesis or the bilateral spondylolysis at the lumbosacral junction. Possible right renal calculi 5 to 6 mm in size-a finding previously mentioned. If needed consider renal ultrasound to clarify. Small intra-abdominal lymph nodes are a consideration. Stool debris given the stool retention is another.
== END 2018-05-19 12:43 | disposition home or self-care (01) ==
LOC: C.ER 10:01
DX: M47.9 Spondylosis, unspecified (principal); M54.5 Low back pain

== ENCOUNTER 2018-08-23 11:35 | Outpatient (CLI) | payer OTHER | END 2018-08-23 11:36 | disposition home or self-care (01) | LOC: C.MAMMO 11:36 | DX: Z12.31 Encounter for screening mammogram for malignant neoplasm of breast (principal) ==

== ENCOUNTER 2018-09-13 09:08 | Outpatient (CLI) | payer OTHER | END 2018-09-13 09:09 | disposition home or self-care (01) | LOC: C.USIC 09:08 | DX: R74.0 Nonspecific elevation of levels of transaminase and lactic acid dehydrogenase [LDH] (principal) ==